=== PATIENT | male | born 1980 | race Two or more races ===

== ENCOUNTER 2018-03-29 08:46 | Emergency (ER) | payer SELFPAY ==
[2018-03-29 09:39] LABS: ADD MAN DIFF? NO
[2018-03-29 09:43] LABS: BASO % 1 % (0-3); EOS # 0.1 x10^3/uL (0.0-0.7); EOS % 2 % (0-3); HEMATOCRIT 36.9 % (39.0-53.0); HEMOGLOBIN 12.8 g/dL (13.0-17.5); LYMPH # 1.8 x10^3/uL (1.0-4.8); LYMPH % 37 % (24-48); MEAN CORPUSCULAR HEMOGLOBIN 31 pg (25-35); MEAN CORPUSCULAR HGB CONC 35 g/dL (31-37); MEAN CORPUSCULAR VOLUME 88 fL (79-100); MONO # 0.4 x10^3/uL (0.0-1.1); MONO % 8 % (0-9); NEUT # 2.5 x10^3uL (1.8-7.7); NEUT % 53 % (31-73); PLATELET COUNT 236 x10^3/uL (140-400); RED BLOOD COUNT 4.19 x10^6/uL (4.30-5.70); RED CELL DISTRIBUTION WIDTH 12.9 % (11.5-14.5); WHITE BLOOD COUNT 4.8 x10^3/uL (4.0-11.0)
[2018-03-29 09:50] LABS: ANION GAP 9 (6-14); BLOOD UREA NITROGEN 25 mg/dL (8-26); BUN/CREATININE RATIO 36 (6-20); CALCIUM 8.8 mg/dL (8.5-10.1); CARBON DIOXIDE 27 mmol/L (21-32); CHLORIDE 106 mmol/L (98-107); CREATININE 0.7 mg/dL (0.7-1.3); GFR 126.9; GLUCOSE 130 mg/dL (70-99); POTASSIUM 4.3 mmol/L (3.5-5.1); SODIUM 142 mmol/L (136-145)
[2018-03-29 09:56] LABS: ALBUMIN 3.8 g/dL (3.4-5.0); ALBUMIN/GLOBULIN RATIO 1.1 (1.0-1.7); ALK PHOS 200 U/L (46-116); ALT (SGPT) 32 U/L (16-63); AST (SGOT) 19 U/L (15-37); C-REACTIVE PROTEIN 4.6 mg/L (0-3.3); TOTAL BILIRUBIN 0.4 mg/dL (0.2-1.0); TOTAL PROTEIN 7.3 g/dL (6.4-8.2)
[2018-03-29 10:44] LABS: SEDIMENTATION RATE 29 (0-15)
[2018-03-29] MEDS: HYDROcodone/APAP 5/325MG 1 TAB TABLET PO (11:09)
== END 2018-03-29 11:44 | disposition home or self-care (01) ==
LOC: ER 11:44
DX: L03.116 Cellulitis of left lower limb (principal); E11.319 Type 2 diabetes mellitus with unspecified diabetic retinopathy without macular edema
CPT/HCPCS: 36415; 73610; 80053; 85025; 85651; 86140; 93971; 99285-25

== ENCOUNTER 2018-12-10 10:30 | Emergency (ER) | payer SELFPAY ==
[~2018-12-10] VITALS: Ht 175.3 cm; Wt 66.7 kg
[~2018-12-10 10:30] MED LIST: CLIN150C14 PO; NAPR-514 PO
[2018-12-10 11:00] VITALS: BP 131/84
[2018-12-10] MEDS ORDERED: PRED-220 PO (11:51)
[2018-12-10] MEDS ORDERED: DIPH25CA58 PO (11:51)
[2018-12-10] MEDS ORDERED: FAMO20TA5 PO (11:51)
--- NOTE | 2018-12-10 11:51 | PHYS DOC ---
Past Medical History Past Medical History: Diabetes-Type II, Other Additional Past Medical Histor: diabetic retinopathy Past Surgical History: No Surgical History Alcohol Use: Sober Drug Use: None Adult General Chief Complaint Chief Complaint: SKIN RASH/ABSCESS HPI HPI Patient is a 38 year old male who presents to the ED today with his complaining of poison laura rash that began 6 days ago while cutting trees. Patient denies any fever. Review of Systems Review of Systems Constitutional: Denies fever or chills [] Musculoskeletal: Denies back pain or joint pain [] Integument: Reports poison laura rash Neurologic: Denies headache, focal weakness or sensory changes [] All other systems were reviewed and found to be within normal limits, except as documented in this note. Allergies Allergies Allergies Coded Allergies Type Severity Reaction Last Updated Verified No Known Drug Allergies 07/29/14 No Physical Exam Physical Exam Constitutional: Well developed, well nourished, no acute distress, non-toxic appearance. [] Skin: Mild amount of erythematous rash on patient's bilateral lower eyelids, left ear. No conjunctivae involvement. Mild amount of similar erythematous rash on bilateral upper extremities and abdomen. Back: No tenderness, no CVA tenderness. [] Extremities: No tenderness, no cyanosis, no clubbing, ROM intact, no edema. [] Neurologic: Alert and oriented X 3, normal motor function, normal sensory function, no focal deficits noted. [] Psychologic: Affect normal, judgement normal, mood normal. [] Current Patient Data Vital Signs Vital Signs Date Time Temp Pulse Resp B/P (MAP) Pulse Ox O2 Delivery O2 Flow Rate FiO2 12/10/18 11:00 97.4 79 16 131/84 (100) 97 Room Air 97.4 EKG EKG [] Radiology/Procedures Radiology/Procedures [] Course & Med Decision Making Course & Med Decision Making Pertinent Labs and Imaging studies reviewed. (See chart for details) Patient has poison laura rash. Will be discharged after a dose of prednisone. Also discharged with Pepcid and Benadryl. Follow-up with family court counsellor or PCP in 2 weeks as needed. Dragon Disclaimer Dragon Disclaimer This electronic medical record was generated, in whole or in part, using a voice recognition dictation system. Departure Departure Impression: Primary Impression: Contact dermatitis due to poison laura Disposition: HOME, SELF-CARE Condition: STABLE Referrals: NO PCP (PCP) SHRUTHI,DESTINEY MD follow up in 2 week Patient Instructions: Poison Laura, [id number] Additional Instructions: You have poison laura rash. Take the prescribed medications as ordered. Follow-up with your own doctor the provided family court counsellor in 2-4 weeks. Scripts Diphenhydramine Hcl (BENADRYL) 25 Mg Capsule 1 CAP PO Q6HRS, #30 CAP 1 Refill Prov: SOFI CURIEL APRN 12/10/18 Famotidine (FAMOTIDINE) 20 Mg Tablet 20 MG PO DAILY, #14 TAB Prov: SOFI CURIEL APRN 12/10/18 Prednisone (PREDNISONE ) 10 Mg Tablet 10 MG PO UD for PREDNISONE TAPER, #39 TAB 0 Refills Take 3 tablets by mouth twice a day for 3 days, then take 2 tablets by mouth twice a day for 3 days, then take 1 tablet by mouth twice a day for 3 days, then take 1 tablet by mouth daily x 3 days, then stop. Prov: SOFI CURIEL APRN 12/10/18 SOFI CURIEL APRN Dec 10, 2018 11:51
== END 2018-12-10 12:06 | disposition home or self-care (01) ==
LOC: ER 10:30
DX: L23.7 Allergic contact dermatitis due to plants, except food (principal); E11.40 Type 2 diabetes mellitus with diabetic neuropathy, unspecified
CPT/HCPCS: 99283